=== PATIENT | male | born 1950 | race Caucasian/White ===

== ENCOUNTER 2023-04-23 12:47 | Outpatient (CLI) | payer OTHER, SELFPAY ==
--- NOTE | 2023-04-23 12:57 | USCV_ITS ---
Devon Granados Age: 73 Gender: M : 1950 Exam Date: 04/23/2023 13:08 Ordering Phys: Edward Vásquez Technologist: CT Exam Location: [facility] [place]_ Indication: BP: 130 / 85 HR: Rhythm: Sinus Technical Quality: Adequate MEASUREMENTS (Male / Female) Normal Values 2D ECHO LVOT Diameter 2.1 cm LV Ejection Fraction MOD 2C 69.6 % Aorta at Sinotubular Diameter 3.2 cm IVC Diameter 0.8 cm M-MODE LA Ao Ratio MM 1.1 AV Cusp Separation MM 2.2 cm DOPPLER AV Peak Velocity 122.0 cm/s LVOT Peak Velocity 117.0 cm/s AV Area Cont Eq vti 3.8 cm squared AV Area Cont Eq pk 3.4 cm squared MV Area PHT 3.3 cm squared Mitral E to A Ratio 63.0 TV Peak Velocity 116.0 cm/s TR Peak Velocity 118.0 cm/s TR Peak Gradient 5.6 mmHg Right Atrial Pressure 3.0 mmHg Pulmonary Artery Systolic Pressu 8.6 mmHg PV Peak Velocity 88.0 cm/s FINDINGS Left Ventricle Left ventricular ejection fraction is estimated at 70 %. Regional wall motion abnormalities (see diagram).Grade I/IV diastolic dysfunction (abnormal relaxation filling pattern), normal to mildly elevated filling pressures. Right Ventricle The right ventricle is normal in size and function. Right Atrium The right atrium is normal in size. Left Atrium The left atrium is normal in size. Mitral Valve No gross abnormalities noted Aortic Valve Thickened aortic valve. Tricuspid Valve No gross abnormalities noted Pulmonic Valve Trace to mild pulmonary valve regurgitation. Pericardium Normal pericardium without effusion. Aorta Normal aortic annulus size. IVC Normal inferior vena cava. CONCLUSIONS Left ventricular ejection fraction is estimated at 70 %. Regional wall motion abnormalities (see diagram).Grade I/IV diastolic dysfunction (abnormal relaxation filling pattern), normal to mildly elevated filling pressures. Thickened aortic valve. There is no pericardial effusion. There are no intracardiac masses. No similar previous studies are available for comparison Dr Tyler Miller MD [facility] (Electronically Signed) Final Date: 25 April 2023 17:27 S
== END 2023-04-23 12:48 | disposition home or self-care (01) ==
LOC: RAD 12:49
PROVIDERS: Visit Provider Chiropractor
DX: I25.9 Chronic ischemic heart disease, unspecified (principal); I35.8 Other nonrheumatic aortic valve disorders; I51.89 Other ill-defined heart diseases
CPT/HCPCS: 93306